=== PATIENT | female | born 1955 | race Caucasian/White ===

== ENCOUNTER → 2017-06-26 | Outpatient (CLI) | payer BC ==
[2006-07-07 08:50] VITALS: TEMP 96.9
== END ==
LOC: MC.RAD 07:40
DX: Z12.31 Encounter for screening mammogram for malignant neoplasm of breast (principal)

== ENCOUNTER → 2018-07-23 | Outpatient (CLI) | payer BC ==
[2006-07-07 08:50] VITALS: TEMP 96.9
== END ==
LOC: MC.RAD 07:36
DX: Z12.31 Encounter for screening mammogram for malignant neoplasm of breast (principal)

== ENCOUNTER → 2019-08-05 | Outpatient (CLI) | payer BC ==
[2006-07-07 08:50] VITALS: TEMP 96.9
== END ==
LOC: MC.RAD 09:43
DX: Z12.31 Encounter for screening mammogram for malignant neoplasm of breast (principal)

== ENCOUNTER → 2020-08-07 | Outpatient (CLI) | payer BC ==
[2006-07-07 08:50] VITALS: TEMP 96.9
== END ==
LOC: MC.RAD 11:45
DX: Z12.31 Encounter for screening mammogram for malignant neoplasm of breast (principal)

== ENCOUNTER → 2021-08-28 | Outpatient (CLI) | payer MEDICARE, BC ==
[2006-07-07 08:50] VITALS: TEMP 96.9
== END ==
LOC: MC.RAD 10:03
DX: Z12.31 Encounter for screening mammogram for malignant neoplasm of breast (principal)

== ENCOUNTER → 2023-09-17 | Outpatient (CLI) | payer MEDICARE, BC ==
[2006-07-07 08:50] VITALS: TEMP 96.9
== END ==
LOC: MC.RAD 14:10
DX: Z12.31 Encounter for screening mammogram for malignant neoplasm of breast (principal)